=== PATIENT | male | born 1965 | race Caucasian/White ===

== ENCOUNTER → 2017-06-12 08:01 | Outpatient (CLI) | payer SELFPAY | PROVIDERS: Family Provider Nurse Practitioner Family; PCP Nurse Practitioner Family; Visit Provider Internal Medicine Critical Care Medicine | DX: R59.0 Localized enlarged lymph nodes (principal) | CPT/HCPCS: 36415; 85610; 85730 ==

== ENCOUNTER 2017-06-16 11:19 | Day surgery (SDC) | payer SELFPAY ==
[2017-06-16] VITALS (8 sets, daily range): BP systolic 125–150; BP diastolic 76–94; PULSE 64–107; RESP 16–28; TEMP 36.6–37.3; O2SAT 95–100; BMI 35.9
--- NOTE | 2017-06-16 | FLU_PTH ---
PATIENT: HOLLY ANGULO LOC: [facility] U#:[id number] AGE/SX: 52/M ROOM: RE06/16/[address]: Dr. Christian Watters DO : 1965 BED: DIS: 06/16/2017 SPEC #: [id number] RECD: 06/16/17 14:00 STATUS: HARJINDER DANIEL #: [id number] ANNABEL: 06/16/17 00:[address]: Christian Watters DEPT: CYTOLOGY RECD BY: Todd Mei ENTERED: 06/19/17 08:22 SP TYPE: Fluid OTHR DR: Archana Guthrie, DUCT CLEANER-C Tissues: A - Lung, NOS B - Lung, NOS C - Lung, NOS D - Lung, NOS E - Lung, NOS F - Lung, NOS G - Lung, NOS H - Lung, NOS I - Lung, NOS J - Lung, NOS K - Lung, NOS L - Lung, NOS M - Lung, NOS N - Lung, NOS Procedures: Special Stain Group II Special Stain Group I Surgery Specimen Level IV AFB Stain (control) GMS Stain (control) HEADER OPERATION: EBUS with TBNA PRE-OP DIAGNOSIS: Mediastinal LAD TISSUE SUBMITTED: A-E ? EBUS, FNA, site 7, F-H - EBUS, FNA, site 10R, I-K - EBUS, FNA, site 10L, L ? TBNA, site 7, M ? TBNA, site 10R, N ? TBNA, site 10L DIAGNOSIS CYTOLOGY A. EBUS FNA #1, site 7: Adequate for evaluation. Negative for malignant cells. Lymphocytes present. A few epithelioid cells suspicious for granuloma are noted. B. EBUS FNA #2, site 7: A few lymphocytes and respiratory epithelial cells noted. Negative for malignant cells. C. EBUS FNA #3, site 7: A few lymphocytes ae noted. Negative for malignant cells. D. EBUS FNA #4, site 7: Adequate for evaluation. Negative for malignant cells. Lymphocytes present. A few giant cell are also noted. E. EBUS FNA #5, site 7: A few lymphocytes present. Negative for malignant cells. F. EBUS FNA #6, site 10R: A few lymphocytes and respiratory epithelial cells. Negative for malignant cells. G. EBUS FNA #7, site 10R: The specimen predominantly consists of respiratory epithelial cells. A collection of epithelioid cells consistent with granuloma is also noted. H. EBUS FNA #8, site 10R: Nondiagnostic specimen. Rare lymphocytes and respiratory cells noted. I. EBUS FNA #9, site 10L: A few lymphocytes and respiratory cells noted, negative for malignant cells. J. EBUS FNA #10, site 10L: Adequate for evaluation. Lymphocytes present. A few epithelioid cells, suggestive of granulomas are noted. Negative for malignant cells. K. EBUS FNA #11, site 10L: Adequate for evaluation. Lymphocytes present. Negative for malignant cells. L. TBNA, site 7 fluid (cell block): Lymphocytes present. Numerous non-necrotizing granulomas are noted. Negative for malignancy. Special stains for acid fast bacilli and fungi are negative for organisms; matched controls are appropriate. M. TBNA, site 10R fluid (cell block): Paucicellular specimen, rare respiratory epithelial cells and lymphocytes are noted. N. TBNA, site 10L fluid (cell block): Paucicellular specimen, rare respiratory epithelial cells and lymphocytes are noted. Flow cytometry study from [facility] [place] will be reported as an addendum. SJ:geremias 06/19/17 COMMENT Immediate evaluation by Dr. Hayden: A. EBUS FNA #1, site 7: Adequate for evaluation. Negative for malignancy. Lymphocytes present. Reported to Dr. Watters and OR personnel at 1:07 p.m. B. EBUS FNA #2, site 7: Only a few lymphocytes and respiratory epithelial cells. Reported to OR personnel at 1:12 p.m. C. EBUS FNA #3, site 7: Only a few lymphocytes. Nondiagnostic. Negative for malignant cells. Reported to OR personnel at 1:14 p.m. D. EBUS FNA #4, site 7: Adequate for evaluation. Negative for malignancy. Lymphocytes present. Reported to OR personnel at 1:18 p.m. E. EBUS FNA #5, site 7: A few lymphocytes present. Negative for malignant cells. Reported to OR personnel at 1:20 p.m. F. EBUS FNA #6, site 10R: A few lymphocytes and respiratory epithelial cells. Negative for malignant cells. Reported to OR personnel at 1:24 p.m. G. EBUS FNA #7, site 10R: Respiratory epithelial cells only. Nondiagnostic. Reported to OR personnel at 1:31 p.m. H. EBUS FNA #8, site 10R: Nondiagnostic. Blood only. Reported to OR personnel at 1:34 p.m. I. EBUS FNA #9, site 10L: A few lymphocytes present. Negative for malignant cells. Reported to OR personnel at 1:38 p.m. J. EBUS FNA #10, site 10L: Adequate for evaluation. Lymphocytes present. Focally suggestive of granuloma. Negative for malignant cells. Reported to OR personnel at 1:41 p.m. K. EBUS FNA #11, site 10L: Adequate for evaluation. Lymphocytes present. Negative for malignant cells. Reported to OR personnel at 1:45 pm. CYTOLOGY STUDY Slides are reviewed. CYTOLOGY GROSS A ? Received labeled with the patient?s name, and designated ?EBUS, FNA, aspiration #1, site 7.? The specimen consists of two smears submitted for immediate cytologic evaluation (wet read). B - Received labeled with the patient?s name, and designated ?EBUS, FNA, aspiration #2, site 7.? The specimen consists of two smears submitted for immediate cytologic evaluation (wet read). C - Received labeled with the patient?s name, and designated ?EBUS, FNA, aspiration #3, site 7.? The specimen consists of two smears submitted for immediate cytologic evaluation (wet read). D - Received labeled with the patient?s name, and designated ?EBUS, FNA, aspiration #4, site 7.? The specimen consists of two smears submitted for immediate cytologic evaluation (wet read). E - Received labeled with the patient?s name, and designated ?EBUS, FNA, aspiration #5, site 7.? The specimen consists of two smears submitted for immediate cytologic evaluation (wet read). F - Received labeled with the patient?s name, and designated ?EBUS, FNA, aspiration #6, site 10R.? The specimen consists of two smears submitted for immediate cytologic evaluation (wet read). G - Received labeled with the patient?s name, and designated ?EBUS, FNA, aspiration #7, site 10R.? The specimen consists of two smears submitted for immediate cytologic evaluation (wet read). H - Received labeled with the patient?s name, and designated ?EBUS, FNA, aspiration #8, site 10R.? The specimen consists of two smears submitted for immediate cytologic evaluation (wet read). I - Received labeled with the patient?s name, and designated ?EBUS, FNA, aspiration #9, site 10L.? The specimen consists of two smears submitted for immediate cytologic evaluation (wet read). J - Received labeled with the patient?s name, and designated ?EBUS, FNA, aspiration #10, site 10L.? The specimen consists of two smears submitted for immediate cytologic evaluation (wet read). K - Received labeled with the patient?s name, and designated ?EBUS, FNA, aspiration #11, site 10L.? The specimen consists of two smears submitted for immediate cytologic evaluation (wet read). L ? Received in RPMI and labeled with the patient?s name, and designated ?TBNA, site 7.? Submitted for cytology preparation including cell block. M - Received in RPMI and labeled with the patient?s name, and designated ?TBNA, site 10R.? Submitted for cytology preparation including cell block. N - Received in RPMI and labeled with the patient?s name, and designated ?TBNA, site 10L.? Submitted for cytology preparation including cell block. Half of the specimen is submitted for flow cytometry study. / DARIO:geremias 06/16/17 TC:5 CPT: 94566 x3, 15275 x3, 13218 x3, 79563 x8, 50279 x2 ADDENDUM ADDENDUM ADDENDUM ADDENDUM ADDENDUM ADDENDUM 06/28/2017 15:50 ADDENDUM 06/28/2017 15:50 ADDENDUM 06/28/2017 15:50 ADDENDUM 06/28/2017 15:50 ADDENDUM 06/28/2017 15:50 FLOW CYTOMETRY REPORT FROM [facility] INTERPRETATION: No significant immunophenotypic abnormality detected. Please see complete report in e-chart or EMR for further details
--- NOTE | 2017-06-16 14:35 | OP.PCM_ITS ---
Operative Report Date of Procedure: 06/16/17 BRONCHOSCOPY (EBUS) PROCEDURE REPORT DATE OF SERVICE: June 16, 2017 BRIEF HISTORY: The patient is a 52-year-old male who presented to the office of Dr. Stockton for evaluation of abnormal chest imaging and shortness of breath. A CT chest with contrast had been completed at an outside hospital on May 13, 2017 and showed evidence of significant mediastinal and hilar lymphadenopathy. The patient was subsequently referred to mo to undergo mediastinal lymph node evaluation via EBUS. PROCEDURE: Bronchoscopy with endoscopic endobronchial ultrasound (EBUS), transbronchial needle aspiration INDICATION: Mediastinal and hilar lymphadenopathy PHYSICIAN: Christian Watters DO ANESTHETIC: This procedure was completed under the supervision of anesthesia. Please refer to their documentation accordingly. COMPLICATIONS: No immediate complications noted. DESCRIPTION OF PROCEDURE: A history and physical has been performed. Please see outpatient pulmonary clinic note. The patient's medications and allergies have been reviewed. The risks and benefits of the procedure and sedation options and risks were discussed with the patient at length. All questions were answered and informed consent was obtained. The patient's identification and proposed procedure were verified prior to the procedure by the physician. ASA GRADE ASSESSMENT: II After obtaining informed consent, the bronchoscope was introduced through the mouth, via laryngeal mask airway and advanced to the tracheal bronchial tree bilaterally. The procedure was accomplished without difficulty. The patient tolerated the procedure well. FINDINGS: The visualized oropharynx appears normal. The vocal cords appeared normal and moved normally with breathing. The subglottic space is normal. The trachea was of normal caliber. The leann is sharp. The tracheal bronchial trees of the left and right lungs were examined to at least the first subsegmental level. Bronchial mucosa and anatomy was noted to be normal. Once the airway inspection was completed, the standard bronchoscope was withdrawn and a convex probe endobronchial ultrasound (EBUS) bronchoscope was inserted through the same route. The endobronchial ultrasound endoscope was then utilized to systematically examine the superior/inferior mediastinal and hilar lymph nodes to assist with fine-needle aspiration. In total, 11 transbronchial needle aspirations were completed at 3 different lymph node stations. Transbronchial needle aspiration was performed at lymph node station 7 using an Olympus EBUS-TBNA 19-gauge needle and sent for routine cytology. The procedure was guided by ultrasound. 5 samples were obtained. Transbronchial needle aspiration was then performed at lymph node station 10R using an Olympus EBUS-TBNA 19-gauge needle and sent for routine cytology. The procedure was guided by ultrasound. 3 samples were obtained. Transbronchial needle aspiration was then performed at lymph node station 10L using an Olympus EBUS-TBNA 19-gauge needle and sent for routine cytology. The procedure was guided by ultrasound. 3 samples were obtained. Rapid on-site evaluation (RYLEY): Lymphocytes and potential granuloma formation. Following this, the EBUS endoscope was subsequently withdrawn from the patient' s airway through the LMA. A conventional bronchoscope was then reinserted into the patient's airway, at which time, any retained secretions and/or blood was cleared. The bronchoscope was then withdrawn without complication. The patient was then transferred to the PACU, where they recovered in the usual fashion. IMPRESSION: 1. Extensive mediastinal and bilateral hilar lymphadenopathy was noted 2. Transbronchial needle aspiration was performed at the following lymph node stations: [place], right hilar, left hilar. 3. Samples will be sent for cytology, flow cytometry and AFB. RECOMMENDATIONS: 1. Await final pathology results. 2. Follow-up in the pulmonary medicine clinic as scheduled. Code Visit 9xxxx: Other Procedure See Report
== END 2017-06-16 16:11 | disposition home or self-care (01) ==
LOC: EN 11:21 → AC 11:22
PROVIDERS: Family Provider Nurse Practitioner Family; PCP Nurse Practitioner Family; Visit Provider Internal Medicine Critical Care Medicine
PROC: BB4BZZZ Ultrasonography of Pleura (ICD-10-PCS; principal; 2017-06-16 12:00)
DX: J84.10 Pulmonary fibrosis, unspecified (principal); R93.8 Abnormal findings on diagnostic imaging of other specified body structures; R59.0 Localized enlarged lymph nodes; R06.09 Other forms of dyspnea; I10 Essential (primary) hypertension
CPT/HCPCS: 31653; 88305; 88312; 88313; J7120; A4216

== ENCOUNTER → 2017-06-22 06:50 | Outpatient (CLI) | payer SELFPAY ==
--- NOTE | 2017-06-22 13:45 | PFT ---
INTRODUCTION: The patient is a 52-year-old male currently under the care of Dr. Stockton that presents for pulmonary function testing secondary to a diagnosis of dyspnea. Respiratory therapy reports good patient effort and reports no other concerns. Bronchodilators were used during testing. INTERPRETATION: Forced expiration spirometry demonstrates no evidence of a large airways obstructive ventilatory impairment. There was no significant response to aerosolized bronchodilators, based upon strict ATS criteria. Spirograms are of good quality and plateau gradually. The respiratory flow volume loop appears normal. Body plethysmography was performed and reveals a borderline mild restrictive ventilatory impairment. The remainder of the lung volumes are symmetrically reduced. Diffusing capacity by single breath CO is within normal limits at 95% of predicted. IMPRESSION: These pulmonary function studies demonstrate only the presence of a borderline mild restrictive ventilatory impairment. There are no previous pulmonary function studies available for comparison.
== END ==
PROVIDERS: Family Provider Nurse Practitioner Family; PCP Nurse Practitioner Family; Visit Provider Internal Medicine Critical Care Medicine
DX: R06.00 Dyspnea, unspecified (principal)
CPT/HCPCS: 94060; 94726; 94729

== ENCOUNTER → 2017-09-21 09:35 | Outpatient (CLI) | payer SELFPAY ==
--- NOTE | 2017-09-21 09:41 | EKG12_ITS ---
Test Reason : Blood Pressure : / mmHG Vent. Rate : 054 BPM Atrial Rate : 054 BPM P-R Int : 172 ms QRS Dur : 112 ms QT Int : 436 ms P-R-T Axes : 006 011 016 degrees QTc Int : 413 ms Sinus bradycardia Otherwise normal ECG Confirmed by NEVILLE PARISH, LYNETTE ([id number]), assistant film editor LINDA HAGEN ([id number]) on 09/25/2017 1:09:35 PM Referred By: Carter Stockton Confirmed By:LYNETTE LOZADA MD
--- NOTE | 2017-09-21 11:27 | PFTCOMP ---
COMPLETE PULMONARY FUNCTION TEST INTERPRETATION Brief HPI: Patient is a 52 year old male, currently under the care of myself, who presents to [facility] for complete pulmonary function tests secondary to diagnosis of sarcoidosis. Respiratory therapist reports good effort and reproducible results. Interpretation: Forced expiration spirometry shows no large airways obstructive ventilatory defect with an FEV1 of 105% predicted. There is no significant bronchodilator response by ATS criteria. Spirograms are of good quality and plateau normally. The respiratory flow volume loop shows a normal pattern. Lung volumes by body plethysmography show a normal total lung capacity at 6.3 L, 90% predicted. All other lung volumes are within normal limits. Diffusion capacity by carbon monoxide is normal at 106% predicted. The airway resistance is normal. Compared to previous pulmonary function tests from 06/22/2017, there has been a significant improvement in DLCO. Impression: These pulmonary function tests are within normal limits and show significant improvement compared to previous study.
--- NOTE | 2017-09-21 11:30 | PFTCOMP_ITS ---
COMPLETE PULMONARY FUNCTION TEST INTERPRETATION Brief HPI: Patient is a 52 year old male, currently under the care of myself, who presents to [facility] for complete pulmonary function tests secondary to diagnosis of sarcoidosis. Respiratory therapist reports good effort and reproducible results. Interpretation: Forced expiration spirometry shows no large airways obstructive ventilatory defect with an FEV1 of 105% predicted. There is no significant bronchodilator response by ATS criteria. Spirograms are of good quality and plateau normally. The respiratory flow volume loop shows a normal pattern. Lung volumes by body plethysmography show a normal total lung capacity at 6.3 L , 90% predicted. All other lung volumes are within normal limits. Diffusion capacity by carbon monoxide is normal at 106% predicted. The airway resistance is normal. Compared to previous pulmonary function tests from 06/22/2017, there has been a significant improvement in DLCO. Impression: These pulmonary function tests are within normal limits and show significant improvement compared to previous study.
== END ==
PROVIDERS: Family Provider Nurse Practitioner Family; PCP Nurse Practitioner Family; Visit Provider Internal Medicine Critical Care Medicine
DX: D86.9 Sarcoidosis, unspecified (principal)
CPT/HCPCS: 93005; 94060; 94726; 94729

== ENCOUNTER → 2018-01-02 07:53 | Outpatient (CLI) | payer SELFPAY ==
--- NOTE | 2018-01-02 07:56 | CT_ITS ---
STUDY: CT CHEST WITHOUT CONTRAST REASON FOR EXAM: Male, 52 years old. Mediastinal adenopathy, possible history of colon CA RADIATION DOSAGE (If Supplied By Facility): CTDIvol = ( 18.15 ) mGy, DLP = ( 731.11 ) mGycm TECHNIQUE: Transaxial imaging was performed without the administration of intravenous contrast material. Individualized dose optimization techniques were used for this CT. COMPARISON: None. FINDINGS: There is a 4 mm nodule of the anterior right lower lobe image 81 series 4. There is a 3 mm nodule of the right upper lobe image 56 series 4. There is a 3 mm lung nodule of the right upper lobe image 23 series 4. There is no demonstrated pleural abnormality. The heart size is within normal limits. There is no pericardial effusion. There are scattered nonpathologically enlarged mediastinal nodes. Normal hilar regions. Normal unenhanced pulmonary arteries. Normal aorta arch and descending thoracic aorta. There are degenerative changes of the lower thoracic spine. There is decreased hepatic parenchymal density consistent with steatosis. The gallbladder is not visualized. CT/Chest WITH Contrast IMPRESSION: Right lung nodules as detailed above. Appropriate follow up using Fleischner Society criteria is recommended. Scattered nonpathologically enlarged mediastinal nodes. Degenerative changes of the lower thoracic spine. Hepatic steatosis. The gallbladder is not visualized. Electronically Signed: Олег Joe MD at 23:18 EDT , Service support ,
== END ==
PROVIDERS: Family Provider Nurse Practitioner Family; PCP Nurse Practitioner Family; Referring Provider Internal Medicine Critical Care Medicine; Visit Provider Internal Medicine Critical Care Medicine
DX: D86.9 Sarcoidosis, unspecified (principal)
CPT/HCPCS: 71260; Q9967

== ENCOUNTER → 2018-07-12 08:39 | Outpatient (CLI) | payer SELFPAY ==
--- NOTE | 2018-07-12 14:49 | PFTCOMP_ITS ---
COMPLETE PULMONARY FUNCTION TEST INTERPRETATION Brief HPI: Patient is a 53 year old male, currently under the care of myself, who presents to [facility] for complete pulmonary function tests secondary to diagnosis of dyspnea. Respiratory therapist reports good effort and reproducible results. Interpretation: Forced expiration spirometry shows no large airways obstructive ventilatory defect with an FEV1 of 98% predicted. There is no significant bronchodilator response by strict ATS criteria. Spirograms are of good quality and plateau normally. The respiratory flow volume loop shows a normal pattern. Lung volumes by body plethysmography show a normal total lung capacity at 6.43 L, 92% predicted. All other lung volumes are within normal limits. Diffusion capacity by carbon monoxide is normal at 92% predicted. The airway resistance is normal. Compared to previous pulmonary function tests from 06/22/2017, there is been a significant improvement in DLCO by 11%. Impression: These pulmonary function tests are within normal limits and there has been some improvement compared to previous.
== END ==
PROVIDERS: Family Provider Nurse Practitioner Family; PCP Nurse Practitioner Family; Referring Provider Internal Medicine Critical Care Medicine; Visit Provider Internal Medicine Critical Care Medicine
DX: D86.9 Sarcoidosis, unspecified (principal)
CPT/HCPCS: 94060; 94726; 94729

== ENCOUNTER → 2019-07-02 08:42 | Outpatient (CLI) | payer SELFPAY ==
[2018-07-17 08:45] VITALS: BMI 36.8
--- NOTE | 2019-07-03 10:16 | PFT ---
INTRODUCTION: The patient is a 54-year-old male that presents for pulmonary function studies secondary to a diagnosis of asthma. Respiratory therapy reports good patient effort. Bronchodilators were used during testing. INTERPRETATION: Forced expiration spirometry demonstrates no evidence of a large airways obstructive ventilatory defect. There was no significant response to aerosolized bronchodilators. Spirograms are of good quality and plateau normally. The respiratory flow volume loop appears normal. Body plethysmography was performed and reveals lung volumes to be within normal limits. Diffusing capacity by single breath CO is also within normal limits. IMPRESSION: Grossly normal pulmonary function studies.
== END ==
PROVIDERS: Family Provider Nurse Practitioner Family; PCP Nurse Practitioner Family; Referring Provider Internal Medicine Critical Care Medicine; Visit Provider Internal Medicine Critical Care Medicine
DX: J45.40 Moderate persistent asthma, uncomplicated (principal); D86.9 Sarcoidosis, unspecified
CPT/HCPCS: 94060; 94726; 94729

== ENCOUNTER → 2024-02-12 | Outpatient (CLI) | payer OTHER, SELFPAY ==
--- NOTE | 2024-02-12 13:55 | RAD_ITS ---
STUDY: X-RAY CHEST REASON FOR EXAM: Male, 58 years old. Chest tightness and pain. TECHNIQUE: PA and lateral views of the chest. COMPARISON: None. FINDINGS: The lungs are clear and expanded. There is no demonstrated pleural abnormality. Normal size heart. Normal mediastinum and deanna. Normal visualized pulmonary arteries. Normal visualized aortic arch and descending thoracic aorta. There are diffuse degenerative changes of the visualized thoracic spine. There is degenerative osteoarthritis of the bilateral shoulders. There is no demonstrated abnormality of the visualized soft tissue structures of the upper abdomen. RAD/Chest PA and Lateral IMPRESSION: No acute abnormalities. Electronically Signed: Fritz Rodarte MD at 14:59 EST ,
[2024-02-12 14:00] LABS: BNP,B-Type NATRIURETIC PEPTIDE 4.1 pg/mL (0-100); D-Dimer Quantitative (DVT/PE) 0.27 FEU/ug/m (0.27-0.49)
[2024-02-12 14:03] LABS: Anion Gap 7 (5-15); BUN 16 mg/dL (7-18); BUN/Creat Ratio 15.8 RATIO (10-20); Calcium,Total 9.2 mg/dL (8.5-10.1); Chloride 102 mmol/L (98-107); Creatinine, Serum 1.01 mg/dL (0.70-1.30); EST Glomerular Filtration Rate 81 mL/min (>60); Est Glom Filt Rate - Afr Amer 98 mL/min (>60); Glucose 147 mg/dL (74-106); Potassium 3.2 mmol/L (3.5-5.1); Sodium Level 138 mmol/L (136-145); Troponin-I HS 12 pg/mL (3.0-78.0)
== END | disposition home or self-care (01) ==
PROVIDERS: PCP Nurse Practitioner Family; Referring Provider Nurse Practitioner Acute Care; Visit Provider Nurse Practitioner Acute Care
DX: R07.9 Chest pain, unspecified (principal)
CPT/HCPCS: 36415; 71046; 80048; 83880; 84484; 85379